=== PATIENT | female | born 1970 | race Two or more races ===

== ENCOUNTER 2022-04-19 22:18 | Emergency (ER) | payer OTHER ==
[2022-04-19 22:33] VITALS: BP 121/74; PULSE 90; RESP 17; TEMP 98.2; BMI 27.4
[2022-04-19] MEDS ORDERED: predniSONE 20 MG TABLET (UD) PO ONE (23:37)
[2022-04-19] MEDS ORDERED: predniSONE 20 MG TABLET (UD) ONE (23:46)
== END 2022-04-19 23:50 | disposition home or self-care (01) ==
LOC: FER 22:18
DX: S90.861A Insect bite (nonvenomous), right foot, initial encounter (principal); S90.862A Insect bite (nonvenomous), left foot, initial encounter; W57.XXXA Bitten or stung by nonvenomous insect and other nonvenomous arthropods, initial encounter
CPT/HCPCS: 99283-25